=== PATIENT | female | born 1990 | race American Indian/Alaskan Native ===

== ENCOUNTER 2025-04-29 20:15 | Emergency (ER) | payer MEDICAID, SELFPAY ==
[2025-04-29 20:17] VITALS: BMI 29.5
[2025-04-29 20:28] VITALS: BP 153/94; PULSE 99; RESP 18; TEMP 36.9; O2SAT 97
--- NOTE | 2025-04-29 20:59 | EKG_ITS ---
[facility] Test Date: 2025-04-29 Pat Name: LINDA ASCENCIO Department: Room: - Gender: Female Director Mobile: : 1990 Requested By: Martha Granados Order Number: [id number] Reading MD: Martha Granados Measurements Intervals Pauline Rate: 82 P: -6 NC: 151 QRS: 64 QRSD: 92 T: 43 QT: 366 QTc: 430 Interpretive Statements SINUS RHYTHM Compared to ECG 08/31/2023 18:11:36 No significant changes /store/S0/[id number]/[id number].pdf
--- NOTE | 2025-04-29 20:59 | XR_ITS ---
EXAMINATION: PA chest single view TECHNIQUE: Upright PA chest single view Date and time: April 29, 2025, 2105 hours INDICATIONS: Chest pain beginning yesterday FINDINGS: Normal heart size Lungs are clear. Osseous structures are intact IMPRESSION: No active disease
--- NOTE | 2025-04-29 21:00 | PD.EDRME ---
Rapid Medical Screening Exam RME Arrival date/time: 04/29/25 20:15 This is a case of 34-year-old female with no medical history came in in the emergency room due to chest pain and fever chills for 2 days persistence of the symptoms this patient decided to start consulted in the emergency ROOM Chief Complaint: General Adult/Misc Complain Time Seen by Provider: 04/29/25 20:18 Vital signs: Vital Signs Temperature 98.5 F 04/29/25 20:28 Pulse Rate 99 04/29/25 20:28 Respiratory Rate 18 04/29/25 20:28 Blood Pressure 153/94 H 04/29/25 20:28 Pulse Oximetry (%) 97 04/29/25 20:28 Oxygen Delivery Method Room Air 04/29/25 20:28 Exam: None sounds clear no rhonchi no crackles no rales no retraction no stridor nrrr NOM MURMUR Clinical Impression: Fever chest pain
[2025-04-29 21:34] LABS: Basophils # (Auto) 0.0 Thou/mm3 (0.0-0.2); Basophils % (Auto) 1 % (0-2.5); Eosinophils # (Auto) 0.4 Thou/mm3 (0.0-0.5); Eosinophils % (Auto) 6 % (0-10); Hematocrit 35.3 % (36.0-46.0); Hemoglobin 11.2 g/dL (12.0-16.0); Immature Granulocytes Auto 0.01 Thou/mm3 (0.00-0.00); Lymphocytes # (Auto) 1.0 Thou/mm3 (1.0-4.8); Lymphocytes % (Auto) 18 % (10-50); Mean Corpuscular HGB Conc 31.7 g/dl (31.0-37.0); Mean Corpuscular Hemoglobin 24.7 pg (25.0-35.0); Mean Corpuscular Volume 78 fL (80-100); Monocytes # (Auto) 0.7 Thou/mm3 (0.0-0.8); Monocytes % (Auto) 12 % (0-12); Neutrophils # (Auto) 3.5 Thou/mm3 (1.8-7.7); Neutrophils % (Auto) 63 % (37-80); Nucleated Red Blood Cell # 0.00 Thou/mm3 (0.00-0.00); Nucleated Red Blood Cell % 0 /100 WBC (0); Platelet Count 319 Thou/mm3 (140-440); RDW Standard Deviation 42.5 fL (36.4-46.3); Red Blood Count 4.53 Miln/mm3 (4.00-5.20); White Blood Count 5.6 Thou/mm3 (3.6-11.0)
[2025-04-29 21:47] LABS: Collection Type, Urine Clean Catch
[2025-04-29 21:47] LABS: Influenza A Ag Negative; Influenza B Ag Negative
[2025-04-29 21:48] LABS: COVID-19 Antigen (In-House) Negative (Negative)
[2025-04-29 21:53] LABS: HCG Qualitative,Urine Negative
[2025-04-29 21:55] LABS: B-Type Natriuretic Peptide < 20 pg/mL (0-100)
[2025-04-29 21:58] LABS: Alanine Aminotransferase 18 U/L (10-49); Albumin, Serum 4.6 gm/dL (3.5-5.0); Albumin/Globulin Ratio 1.6 (1.2-2.2); Alkaline Phosphatase 86 U/L (46-116); Anion Gap 8 (7-16); Aspartate Amino Transferase 24 U/L (0-34); BUN/Creatinine Ratio 8 Ratio (12-20); Bilirubin,Total 0.3 mg/dL (0.3-1.2); Blood Urea Nitrogen 6 mg/dL (9-23); Calcium 9.3 mg/dL (8.3-10.6); Calcium (Corrected) 9.3 mg/dL (8.5-10.1); Carbon Dioxide 27.3 mMol/L (20.0-31.0); Chloride 103 mMol/L (98-107); Creatinine (Component) 0.8 mg/dL (0.6-1.3); Estimated Creatinine Clearance 94.8 mL/min (>60); Globulin 2.9 gm/dL (2.3-3.5); Glucose 114 mg/dL (74-106); Osmolality,Calculated 274 (275-295); Potassium 4.1 mMol/L (3.4-5.1); Sodium 138 mMol/L (136-145); Total Protein 7.5 gm/dL (5.7-8.2); Troponin I < 0.020 ng/mL (0.0-0.045); eGFR > 60 See Note
[2025-04-29 22:00] LABS: Bilirubin,Urine Negative (Negative); Blood,Urine Negative (Negative); Clarity,Urine Turbid (Clear/Hazy); Color,Urine Lt-Yellow (Lt Yel-Yel); Glucose, Urine Negative (Negative); Ketones,Urine Negative (Negative); Leukocyte Esterase,Urine Negative (Negative); Nitrite,Urine Negative (Negative); PH,Urine 7.5 (5.0-7.0); Protein,Urine Negative (Neg - Trace); RBC,Urine 1 /hpf (0-3); Specific Gravity,Urine 1.016 (1.001-1.035); Squamous Epithelial Cell,Urine 18 /hpf (0-5); Urobilinogen,Urine Negative mg/dL (0.0-1.0); WBC,Urine 1 /hpf (0-5)
[2025-04-29 23:08] LABS: Amphetamine/Methamp Scrn,U Positive (Negative); Barbiturate Screen,Urine Negative (Negative); Benzodiazepines Screen,Urine Negative (Negative); Benzoylecgonine Screen, Ur Negative (Negative); Fentanyl Screen,Urine Positive (Negative); Opiate Screen,Urine Negative (Negative); THC Screen,Urine Negative (Negative)
[2025-04-30 00:07] LABS: Troponin I < 0.020 ng/mL (0.0-0.045)
[2025-04-30 00:17] VITALS: BP 155/91; PULSE 94; RESP 18; TEMP 37; O2SAT 97
--- NOTE | 2025-04-30 00:35 | EDNOTE_ITS ---
ED General RME/HPI General Chief complaint: General Adult/Misc Complain Stated complaint: body aches, SKY, chills Time Seen by Provider: 04/29/25 20:18 Arrival date/time: 04/29/25 20:15 Limitations: no limitations RME / HPI RME / HPI narrative: 04/29/25 20:15 This is a case of 34-year-old female with no medical history came in in the emergency room due to chest pain and fever chills for 2 days persistence of the symptoms this patient decided to start consulted in the emergency ROOM Dr. Ibrahim's Main ED Evaluation: 34yo female presents to the ED for complaints of chest pain x today. Patient reports having chest tightness and nasal congestion x today, reporting she last took ibuprofen at 1600. Patient denies any cough, runny nose, N/V, or any other associated symptoms. Patient denies any sick contacts. Endorses using marijuana. NKA. Related Data Home Medications ?Medication ?Instructions ?Recorded ?Confirmed No Known Home Medications 08/07/2007/29 Allergies Allergy/AdvReac Type Severity Reaction Status Date / Time No Known Allergies Allergy Verified 04/29/25 20:22 Review of Systems Review of Systems Systems Reviewed: All systems reviewed, normal except as documented Past Medical History Past Medical History CARDIAC: Negative Congestive Heart Failure RESPIRATORY: Negative Chronic Obstructive Pulmonary Disease (COPD) or Asthma GENITOURINARY: Negative Renal Disease ENDOCRINE: Negative Diabetes Mellitus Type 1 or Diabetes Mellitus Type 2 HEMATOLOGIC: Negative Sickle Cell Disease Social History SMOKING STATUS: Current every day smoker ED Exam General Limitations: Present no limitations General appearance: Present alert and in no apparent distress Head Head exam: Present atraumatic Eye Eye exam: Present normal appearance, PERRL and EOMI ENT ENT exam: Present normal oropharynx, mucous membranes moist and other (nasal congestion, inflamed nasal turbinates) Neck Neck exam: Present normal inspection, full ROM and trachea midline Chest Chest inspection: Present normal inspection and symmetric chest wall rise Respiratory Respiratory exam: Present normal lung sounds bilaterally Cardiovascular Cardiovascular exam: Present regular rate, normal rhythm and normal heart sounds Abdominal Exam Abdominal exam: Present soft Extremities Exam Extremities exam: Present normal inspection and full ROM Back Exam Back exam: Present normal inspection and full ROM Neurological Exam Neurological exam: Present alert, oriented X3 and CN II-XII intact Psychiatric Psychiatric exam: Present normal affect and normal mood Skin Skin exam: Present warm, dry, intact and normal color Course Quality Measures none Orders Category Date Time Status EKG (ED ONLY) *Do not use* NOW Care 04/29/25 20:59 Completed EKG (ED Only) Stat Exams 04/29/25 20:59 Draft XR chest 1V Stat Exams 04/29/25 20:59 Completed BNP [B-Type Natriuretic Peptide] Stat Lab 04/29/25 21:15 Completed CBC Stat Lab 04/29/25 21:15 Completed COVID-19 Antigen (In-House) Stat Lab 04/29/25 21:12 Completed Comprehensive Metabolic Panel Stat Lab 04/29/25 21:15 Completed Drug Screen,Urine Stat Lab 04/29/25 21:37 Completed FLU A&B [Influenza A & B Rapid Panel] Stat Lab 04/29/25 21:12 Completed HCG Qualitative,Urine Stat Lab 04/29/25 21:37 Completed Troponin I Stat Lab 04/29/25 21:15 Completed Troponin I Stat Lab 04/29/25 23:31 Completed Urinalysis Stat Lab 04/29/25 21:37 Completed Acetaminophen Tab [Tylenol Tab] Med 04/30/25 00:40 Discontinued 650 mg PO X1 ONE Oxymetazoline [place] 0.05% [Afrin Nasal [place]] Med 04/30/25 00:38 Discontinued See Dose Instructions NASAL X1 ONE Vital Signs Vital signs: Vital Signs Temperature 98.5 F 04/29/25 20:28 Pulse Rate 99 04/29/25 20:28 Respiratory Rate 18 04/29/25 20:28 Blood Pressure 153/94 H 04/29/25 20:28 Pulse Oximetry (%) 97 04/29/25 20:28 Oxygen Delivery Method Room Air 04/29/25 20:28 Discharge Plan Plan Patient Disposition: HOME (Self Care) Patient condition on transfer: Stable Prescriptions/Referrals Prescriptions/Med Rec: No Action No Known Home Medications Referrals: [facility] [Other] - In 1 week No Primary/Family,Physician [Primary Care Provider] - In 1 week Problem List Clinical Impression: Nasal congestion Patient/Caregiver Discharge Instructions Additional Instructions: Only use the Afrin for 3 days only and then stop. If you use it for more than 3 days in your nose we will want to use it every day. You can take [id number] Tylenol and/or Motrin 3 times a day as needed. Return to emergency department for worsening symptoms or any other concerns. Print Language: Ukrainian Stand Alone Forms: Reena Award Info., Patient Portal Info Letter MDM Narrative MDM hospital course (for use when minimal MDM required): Scribe Attestation: 04/30/25 - Radha Bueno am scribing for and in the presence of Dr. Ibrahim. Patient is seen and examined by me. Nurses notes are reviewed. Patient's blood pressure is slightly elevated in the 150s otherwise not febrile. Labs were reviewed interpreted by me. White count is 5 and normal otherwise hemoglobin 35. Platelets 319 and normal. Electrolytes show slight abnormality in the glucose of 114 otherwise normal LFTs and no other electrolyte abnormality. Urine shows squamous cells. Drug screen is positive for fentanyl and amphetamine. This may be causing the symptoms. O therwise EKG and chest x-ray are reassuring. At this time I do not feel that the patient is having a dissection, pulmonary embolism, and wants to go home. Return precautions given and understood. Clinical Information Provided by: patient Medical Records reviewed [facility] (Per chart review, patient was seen here on 09/22/23 for drug overdose.) Meds/Rx considered, not ordered None Labs/Rad/Tests considered, not ordered None Chronic Illness/Social Conditions which may negatively complicate care or outcome(s)-explain: None or not applicable EKG Interpretation EKG #1: EKG Interpretation: EKG done at 2101, sinus rhythm, rate of 82, normal intervals, normal axis, no acute ST-T changes, according to my interpretation. Labs Labs: interpreted by me Lab(s) Interpretation(s): CBC normal, CMP normal, Troponin x2 unremarkable, UA unremarkable, HCG negative, UDS positive for methamphetamines and fentanyl. COVID/Influenza negative. Imaging Imaging interpretation: interpreted by me Imaging Interpretation(s): [place] [facility] Report Signed Patient: LINDA ASCENCIO. Record#: [id number] Birthdate: 1990 Age/Sex: 34 / F Location: [facility] Attending Dr: Ordering Physician: Martha Huynh Date of Service: 04/29/25 Procedure(s): XR chest 1V Accession Number(s): [id number] cc: Angelito Nathan MD; NO PRIMARY/FAMILY,PHYSICIAN; Martha Huynh~ EXAMINATION: PA chest single view TECHNIQUE: Upright PA chest single view Date and time: April 29, 2025, 2105 hours INDICATIONS: Chest pain beginning yesterday FINDINGS: Normal heart size Lungs are clear. Osseous structures are intact IMPRESSION: No active disease Dictated By: Angelito Nathan MD Signed By: <Electronically signed by Angelito Nathan MD in OV> 04/29/25 2202 Medication Administration(s) Medication Administration History Discontinued Medications Acetaminophen (Acetaminophen 325 Mg Tablet) 650 mg PO X1 ONE Stop: 04/30/25 00:41 Last Admin: 04/30/25 00:48 Dose: 650 mg Documented By: HAI Oxymetazoline HCl (Oxymetazoline [place] 0.05% 15 Ml Btl) 0 spray NASAL X1 ONE Stop: 04/30/25 00:39 Last Admin: 04/30/25 00:48 Dose: 2 spray Documented By: HAI see above Diagnosis Differential Diagnosis ED Complaint MDM: pneumonia, Influenza, COVID, Strep, viral syndrome
[2025-04-30] MEDS: OXYMETAZOLINE NAS SPRY 0.05% 15 ML BTL NASAL (00:48)
[2025-04-30] MEDS: ACETAMINOPHEN 325 MG TABLET 650 MG PO (00:48)
== END 2025-04-30 00:53 | disposition home or self-care (01) ==
PROVIDERS: Nurse Practitioner Family; Emergency Provider Emergency Medicine
DX: R09.81 Nasal congestion (principal); R07.9 Chest pain, unspecified
CPT/HCPCS: 36415; 71045; 80053; 80307; 81001; 81025; 83880; 84484; 85025; 87502; 87811; 93005; 99283; A9270